=== PATIENT | female | born 1995 ===

== ENCOUNTER → 2018-11-03 09:59 | Outpatient (CLI) | payer OTHER ==
[~2018-11-03 09:59] MED LIST: DOXYCYCLINE HY100 M2 PO; MULTIVITAMINS1 EAC9 PO; TYLENOL325 MG PO; Tylenol #3 PO; ZANTAC150 M3 PO
== END | disposition home or self-care (01) ==
LOC: LAB 09:59
DX: N91.1 Secondary amenorrhea (principal)

== ENCOUNTER 2018-11-04 08:48 | Day surgery (SDC) | payer OTHER ==
[~2018-11-04 08:48] MED LIST changes: -DOXYCYCLINE HY100 M2 PO; -Tylenol #3 PO
[2018-11-04] MEDS ORDERED: DOXYCYCLINE HY100 M2 PO (15:00)
[2018-11-04] MEDS ORDERED: Tylenol #3 PO (15:00)
== END 2018-11-04 19:40 | disposition home or self-care (01) ==
LOC: CIR.AMB 08:48
DX: D25.0 Submucous leiomyoma of uterus (principal); N84.0 Polyp of corpus uteri